=== PATIENT | female | born 2005 | race Asian ===

== ENCOUNTER 2024-10-02 20:20 | Emergency (ER) | payer OTHER, SELFPAY ==
[2024-10-02 20:40] VITALS: BP 139/82; PULSE 87; RESP 16; TEMP 37; O2SAT 98; BMI 26.5
[2024-10-03 01:54] VITALS: BP 124/71; PULSE 81; RESP 16; TEMP 37; O2SAT 98
[2024-10-03 02:05] VITALS: BP 124/71; PULSE 81; RESP 16; TEMP 37
== END 2024-10-03 02:05 | disposition home or self-care (01) ==
DX: T74.21XA Adult sexual abuse, confirmed, initial encounter (principal)